=== PATIENT | male | born 1965 | race Caucasian/White ===

== ENCOUNTER 2023-07-28 06:33 | Outpatient (OUT) | payer BC, SELFPAY ==
[2023-07-28 06:41] LABS: Basophils Absolute Auto 0.1 10^3/uL (0.0-0.1); Basophils Percent Auto 1.1 % (0.2-2.0); Eosinophils Absolute Auto 0.3 10^3/uL (0.0-0.7); Eosinophils Percent Auto 5.2 % (0.9-7.0); Hematocrit 43.1 % (42.0-54.0); Hemoglobin 14.3 g/dL (14.0-18.0); Immature Granulocytes Abs Auto 0.01 10^3/uL (0.00-0.03); Immature Granulocytes Pct Auto 0.2 % (0.0-0.5); Lymphocytes Absolute Auto 1.9 10^3/uL (1.2-3.8); Lymphocytes Percent Auto 34.4 % (20.5-60.0); Mean Corpuscular HGB Conc 33.2 g/dL (29.9-35.2); Mean Corpuscular Hemoglobin 27.7 pg (25.9-34.0); Mean Corpuscular Volume 83.5 fL (80.0-94.0); Mean Platelet Volume 8.8 fL (9.5-13.5); Monocytes Absolute Auto 0.7 10^3/uL (0.3-0.8); Monocytes Percent Auto 12.8 % (1.7-12.0); Neutrophils Absolute Auto 2.6 10^3/uL (1.4-6.5); Neutrophils Percent Auto 46.3 % (43.0-75.0); Platelet Count 274 10^3/uL (150-450); Red Blood Count 5.16 10^6/uL (4.70-6.10); Red Cell Distribution Width 14.5 % (11.0-15.0); White Blood Count 5.6 10^3/uL (4.0-11.0)
[2023-07-28 07:30] LABS: Alanine Aminotransferase 42 U/L (16-63); Albumin Level 3.5 g/dL (3.4-5.0); Alkaline Phosphatase 91 U/L (46-116); Anion Gap 8.4; Aspartate Amino Transferase 22 U/L (15-37); BUN Creatinine Ratio 14.8; Bilirubin Total 0.5 mg/dL (0.2-1.0); Calcium 8.3 mg/dL (8.5-10.1); Carbon Dioxide 28.7 mmol/L (21.0-32.0); Chloride 102 mmol/L (98-107); Chol HDL Ratio 4.6; Cholesterol 187 mg/dL (<=200); Estimated GFR (African America >60 (>=60); Estimated GFR (Non-African Ame >60 (>=60); Globulin 3.4 g/dL; Glucose 95 mg/dL (74-106); HDL Cholesterol 41 mg/dL (40-60); LDL Cholesterol Calculated 121.8 mg/dL; Potassium 4.1 mmol/L (3.5-5.1); Sodium 135 mmol/L (136-145); Total Protein 6.9 g/dL (6.4-8.2); Triglycerides 121 mg/dL (<=150); VLDL CHOLESTEROL 24.2 mg/dL
[2023-07-28 07:45] LABS: Prostate Specific Antigen Scrn 0.18 ng/mL (<=4.00)
== END 2023-07-28 06:34 | disposition home or self-care (01) ==
LOC: LAB 06:33
PROVIDERS: PCP Internal Medicine; Visit Provider Internal Medicine
DX: Z00.00 Encounter for general adult medical examination without abnormal findings (principal)
CPT/HCPCS: 36415; 80053; 80061; 85025; G0103

== ENCOUNTER 2024-07-18 06:29 | Outpatient (OUT) | payer BC, SELFPAY ==
--- OUTSIDE RECORDS SUMMARY | 2024-07-18 06:32 | XMS_ITS | CCD ---
Author Organization [facility] Care Team Providers Care Technical Sales Engineer Name Role Phone RAFAL, DR SANDOVAL Primary Care Unavailable MARKER, DR JOHNSTON Admitting Unavailable MARKER, DR JOHNSTON Attending Unavailable ROJELIO, ELADIO JACKSON Consulting Unavailable MARKER, DR JOHNSTON Consulting Unavailable KENNEDY, WERNER Consulting Unavailable BALL, DR SANDOVAL Admitting Unavailable BALL, DR SANDOVAL Attending Unavailable BALL, DR SANDOVAL Primary Care Unavailable BALL, DR SANDOVAL Consulting Unavailable REQUEST, DR OTTO LISTED Admitting Unavaila ble REQUEST, DR OTTO LISTED Attending Unavaila ble BALL, DR SANDOVAL Primary Care Unavailable REQUEST, DR OTTO LISTED Consulting Unavaila ble REQUEST, DR OTTO LISTED Admitting Unavaila ble REQUEST, DR OTTO LISTED Attending Unavaila ble BALL, DR SANDOVAL Primary Care Unavailable REQUEST, DR OTTO LISTED Consulting Unavaila ble SANDY OLIVER Admitting Unavailable BENITO, SANDY Attending Unavailable BALL, DR SANDOVAL Primary Care Unavailable SANDY OLIVER Consulting Unavailable Rafal, Aman Unavailable Allergies Allergy Classification Reported Allergen(s) Allergy Type Date of Onset Reaction(s) Facility (1 source) Penicillins Drug allergy (disorder) 5 [facility] (1 source) predniSONE Drug Allergy 7 [facility] (3 sources) penicillAMINE Drug Allergy Unknown [facility] Other Medications Current Medications Medication Drug Class(es) Dates Sig (Normalized) Sig (Original) amLODIPine 5 mg / benazepril hydrochloride 10 mg oral capsule (3 sources) Dihydropyridine Calcium Channel Tino, Angiotensin Converting Enzyme Inhibitor Start: 07-31-2023 amLODIPine Besy-Benazepril HCl 5-10 MG as directed Orally daily for 30 days Jul, Active Start: 07-19-2023 Lotrel 5-10 MG as directed Orally daily for 30 days Jul, Active benazepril hydrochloride 10 mg oral tablet (3 sources) Angiotensin Converting Enzyme Inhibitor take 1 tablet by mouth once daily Benazepril HCl 10 MG TAKE 1 TABLET BY MOUTH EVERY DAY for 90 Active Completed/Discontinued Medications Medication Drug Class(es) Dates Sig (Normalized) Sig (Original) clarithromycin 250 mg oral tablet (3 sources) Macrolide Antimicrobial Start: 09-15-2016 take 1 tablet by mouth every twelve hours Biaxin 250 MG 1 tablet Orally every 12 hrs for 10 day(s) Sep, Not-Taking Problems Problem Classification Problem Date Documented Da te Episodic/Chronic Conditions associated with dizziness or vertigo (1 source) Dizziness and giddiness; Translations: [DIZZINESS AND GIDDINESS] Onset: 10-12-2021 Episodic Essential hypertension (5 sources) Essential hypertension; Translations: [Essential (primary) hypertension] Chronic Immunizations and screening for infectious disease (4 sources) Encounter for immunization; Translations: [ENCOUNTER FOR IMMUNIZATION] Onset: 10-26-2021 Episodic Nausea and vomiting (1 source) Nausea with vomiting, unspecified; Translations: [NAUSEA WITH VOMITING UNSPECIFIED] Onset: 10-12-2021 Episodic Nonspecific chest pain (4 sources) Chest pain, unspecified; Translations: [CHEST PAIN UNSPECIFIED] Onset: 10-07-2021 Episodic Other nutritional; endocrine; and metabolic disorders (3 sources) Severe obesity; Translations: [Morbid (severe) obesity due to excess calories] Chronic Other nutritional; endocrine; and metabolic disorders (3 sources) Body mass index 30+ - obesity; Translations: [Body mass index (BMI) 36.0-36.9, adult] Chronic Other nutritional; endocrine; and metabolic disorders (1 source) Morbid (severe) obesity due to excess calories Chronic Other nutritional; endocrine; and metabolic disorders (1 source) Body mass index (BMI) 36.0-36.9, adult Chronic Other screening for suspected conditions (not mental disorders or infectious disease) (2 sources) Encounter for screening for malignant neoplasm of prostate; Translations: [ENC SCREEN MALIG NEOPLASM PROSTATE] Onset: 11-26-2021 Episodic Results Test Name Value Interpretation Reference Range Facil ity GLUCOSE BLOODon 11-25-2021 Glucose [Mass/Vol] 95 mg/dL Normal 74-106 [facility] Comment on above: Performed By: #### G JADEN, LIPID #### [facility] [address] [place] [address] Dr. Percy Hayes LIPID PROFILEon 11-25-2021 CHOL-HDL RATIO NORM SEE BELOW Normal [facility] Comment on above: Result Comment: 3.3 - 4.4 LOW RISK 4.4 - 7.1 AVERAGE RISK 7.1 - 11.0 MODERATE RISK >11.0 HIGH RISK Performed By: #### G JADEN, LIPID #### [facility] [address] [address] [address] Percy Hayes Cholesterol [Mass/Vol] 213 mg/dL Critically high <=[address] [facility] Comment on above: Performed By: #### G JADEN, LIPID #### [facility] [address] [address] [address] Percy Hayes Cholesterol in HDL [Mass/Vol] 40 mg/dL Normal [facility] Comment on above: Performed By: #### G JADEN, LIPID #### [facility] [address] [address] [address] Percy Hayes Cholesterol in LDL [Mass/Vol] 136.0 mg/dL Normal [facility] Comment on above: Performed By: #### G JADEN, LIPID #### [facility] [address] [address] [address] Percy Hayes Cholesterol.total/Ch olesterol in HDL [Mass ratio] 5.3 {ratio} Normal [facility] Comment on above: Performed By: #### G JADEN, LIPID #### [facility] [address] [address] [address] Percy Hayes HDL NORMAL > or = 60 mg/dl - LOW CARDIOVASCULAR RISK <40 mg/dl - HIGH CARDIOVASCULAR RISK Normal [facility] Comment on above: Performed By: #### G JADEN, LIPID #### [facility] [address] [address] [address] Percy Hayes LDL CALC NORMAL SEE BELOW Normal [facility] Comment on above: Result Comment: <100 mg/dl OPTIMAL 100 - 129 mg/dl NEAR OR ABOVE OPTIMAL 130 - 159 mg/dl BORDERLINE HIGH 160 - 189 mg/dl HIGH >190 mg/dl VERY HIGH Performed By: #### G JADEN, LIPID #### [facility] [address] [address] [address] Percy Hayes Triglyceride [Mass/Vol] 185 mg/dL Critically high <=[address] [facility] Comment on above: Performed By: #### G JADEN, LIPID #### [facility] [address] [address] [address] Percy Hayes VLDL CALC 37.0 mg/dL Normal [facility] Comment on above: Performed By: #### G JADEN, LIPID #### [facility] [address] [address] [address] Percy Hayes [facility] [facility] October 15, 2021 AMAN SWARTZ, [address] [facility], [place] [address] Re: WILLIAMS LYON Date of : 1965 Thank you for your referral of Williams Lyon who was seen on consultation on 10/12/2021, for lipoma right scapula. I have enclosed my consultation note for your review. I will be happy to follow Williams. Sincerely, Umesh Heller MD General Surgery Normal [facility] TROPONIN, HIGH SENSITIVITYon 10-08-2021 HSTROP 6.5 pg/mL Normal 4.0-42.[address] [facility] Comment on above: Result Comment: CUT- OFF POINTS HAVE BEEN ESTABLISHED BASED ON THE FOURTH UNIVERSAL DEFINITIONS OF MYOCARDIAL INFARCTION. THE UPPER REFERENCE LIMIT (URL) OF TROPONIN, DEFINED THE 99TH PERCENTILE OF cTnI DISTRIBUTION IN A REFERENCE POPULATION, HAS BEEN CONFIRMED THE DECISION THRESHOLD FOR CO DIAGNOSIS. Performed By: #### H STROPN ####[facility] [id number] [address]Dr. Percy Hayes CBC AUTO DIFFon 10-07-2021 BASO # 0.1 103/ul Normal 0.0-0.[address] [facility] Comment on above: Performed By: #### C BC #### [facility] [address] [address] [address] Percy Hayes Basophils/100 WBC (Bld) 0.8 % Normal 0.2-2.[address] [facility] Comment on above: Performed By: #### C BC #### [facility] [address] [address] [address] Percy Hayes EO # 0.3 103/ul Normal 0.0-0.7 [facility] Comment on above: Performed By: #### C BC #### [facility] [address] [place] [address] Dr. Percy Hayes Eosinophils/100 WBC (Bld) 3.8 % Normal 0.9-7.[address] [facility] Comment on above: Performed By: #### C BC #### [facility] [address] [place] [address] Dr. Percy Hayes Erythrocyte distribution width (RBC) [Ratio] 15.2 % Critically high 11.0-15.[address] [facility] Comment on above: Performed By: #### C BC #### [facility] [address] [place] [address] Dr. Percy Hayes Hematocrit (Bld) [Volume fraction] 43.8 % Normal 42.0-54.[address] [facility] Comment on above: Performed By: #### C BC #### [facility] [address] [place] [address] Dr. Percy Hayes Hemoglobin (Bld) [Mass/Vol] 14.0 g/dL Normal 14.0-18.0 [facility] Comment on above: Performed By: #### C BC #### [facility] [address] [place] [address] Dr. Percy Hayes IG # 0.02 10e3/ul Normal 0.00-0.03 [facility] Comment on above: Performed By: #### C BC #### [facility] [address] [place] [address] Dr. Percy Hayes IG % 0.2 % Normal 0.0-0.5 [facility] Comment on above: Performed By: #### C BC #### [facility] [address] [place] [address] Dr. Percy Hayes LYMPH # 2.9 103/ul Normal 1.2-3.8 [facility] Comment on above: Performed By: #### C BC #### [facility] [address] [place] [address] Dr. Percy Hayes Lymphocytes/100 WBC (Bld) 34.3 % Normal 20.5-60.[address] [facility] Comment on above: Performed By: #### C BC #### [facility] [address] [place] [address] Dr. Percy Hayes MANUAL DIFF REQ NO Normal [facility] Comment on above: Performed By: #### C BC #### [facility] [address] [place] [address] Dr. Percy Hayes MCH (RBC) [Entitic mass] 25.6 pg Critically low 25.9-34.[address] [facility] Comment on above: Performed By: #### C BC #### [facility] [address] [place] [address] Dr. Percy Hayes MCHC (RBC) [Mass/Vol] 32.0 g/dL Normal 29.9-35.[address] [facility] Comment on above: Performed By: #### C BC #### [facility] [address] [place] [address] Dr. Percy Hayes MCV (RBC) [Entitic vol] 80.1 fL Normal 80.0-94.[address] [facility] Comment on above: Performed By: #### C BC #### [facility] [address] [place] [address] Dr. Percy Hayes MONO # 1.2 103/ul Critically high 0.3-0.8 [facility] Comment on above: Performed By: #### C BC #### [facility] [address] [place] [address] Dr. Percy Hayes Monocytes/100 WBC (Bld) 14.6 % Critically high 1.7-12.[address] [facility] Comment on above: Performed By: #### C BC #### [facility] [address] [place] [address] Dr. Percy Hayes NEUT # 3.9 103/ul Normal 1.4-6.5 [facility] Comment on above: Performed By: #### C BC #### [facility] [address] [place] [address] Dr. Percy Hayes Neutrophils/100 WBC (Bld) 46.3 % Normal 43.0-75.[address] [facility] Comment on above: Performed By: #### C BC #### [facility] [address] [place] [address] Dr. Percy Hayes Platelet mean volume (Bld) [Entitic vol] 8.7 fL Critically low 9.5-13.[address] [facility] Comment on above: Performed By: #### C BC #### [facility] [address] [place] [address] Dr. Percy Hayes PLT 357 103/ul Normal 150-[address] [facility] Comment on above: Performed By: #### C BC #### [facility] [address] [place] [address] Dr. Percy Hayes RBC 5.47 106/ul Normal 4.70-6.[address] [facility] Comment on above: Performed By: #### C BC #### [facility] [address] [place] [address] Dr. Percy Hayes WBC 8.4 103/ul Normal 4.0-11.[address] [facility] Comment on above: Performed By: #### C BC #### [facility] [address] [place] [address] Dr. Percy Hayes D-DIMERon 10-07-2021 D-DIMER 0.20 mg/L FEU Normal 0.19-0.50 [facility] Comment on above: Performed By: #### D DIM #### [facility] [address] [place] [address] Dr. Percy Hayes D-DIMER COMMENTS SEE BELOW Normal [facility] Comment on above: Result Comment: Incr eases in D-Dimer concentration observed with thromboembolic events can be variable due to localization, size, and age of the thrombus. Therefore, a thromboembolic event cannot be diagnosed with certainty on the basis of the reference range. D-Dimers may also be elevated for a variety of disorders including: advanced age, , coronary disease, cancer, liver disease, infection, inflammation, hematoma, DIC, trauma, post-surgery, diabetes, thrombolytic or anticoagulant therapy, stress, and generalized hospitalization. Performed By: #### D DIM #### [facility] [address] [address] [address] Percy Hayes PROF 14(COMP METB)on 021 Albumin [Mass/Vol] 3.6 g/dL Normal 3.5-5.0 [facility] Comment on above: Performed By: #### H HEENA, CMP #### [facility] [address] [address] [address] Percy Hayes Albumin/Globulin [Mass ratio] 1.0 {ratio} Normal [facility] Comment on above: Performed By: #### H HEENA, CMP #### [facility] [address] [address] [address] Percy Hayes ALP [Catalytic activity/Vol] 86 U/L Normal 38-[address] [facility] Comment on above: Performed By: #### H HEENA, CMP #### [facility] [address] [place] [address] Dr. Percy Hayes ALT [Catalytic activity/Vol] 56 U/L Normal 21-[address] [facility] Comment on above: Performed By: #### H HEENA, CMP #### [facility] [address] [place] [address] Dr. Percy Hayes Anion gap [Moles/Vol] 12.0 mmol/L Normal [facility] Comment on above: Performed By: #### H HEENA, CMP #### [facility] [address] [place] [address] Dr. Percy Hayes AST [Catalytic activity/Vol] 22 U/L Normal 17-[address] [facility] Comment on above: Performed By: #### H CHRISTOPHERPN, CMP #### [facility] [address] [address] [address] Percy Hayes Bilirubin [Mass/Vol] 0.4 mg/dL Normal 0.2-1.3 [facility] Comment on above: Performed By: #### H CHRISTOPHERPN, CMP #### [facility] [address] [address] [address] Percy Hayes Calcium [Mass/Vol] 8.4 mg/dL Normal 8.4-10.2 [facility] Comment on above: Performed By: #### H STROPN, CMP #### [facility] [address] [address] [address] Percy Hayes Chloride [Moles/Vol] 102 mmol/L Normal 98-[address] [facility] Comment on above: Performed By: #### H STROPN, CMP #### [facility] [address] [address] [address] Percy Hayes CO2 [Moles/Vol] 25.5 mmol/L Normal 22.0-30.0 [facility] Comment on above: Performed By: #### H STROPN, CMP #### [facility] [address] [address] [address] Percy Hayes Creatinine [Mass/Vol] 0.92 mg/dL Normal 0.66-1.[address] [facility] Comment on above: Performed By: #### H STROPN, CMP #### [facility] [address] [address] [address] Percy Hayes EGFR-AF NIGERIEN >60 Normal >=60 [facility] Comment on above: Performed By: #### H STROPN, CMP #### [facility] [address] [address] [address] Percy Hayes EGFR-NON AF NIGERIEN >60 Normal >=[address] [facility] Comment on above: Performed By: #### H STROPN, CMP #### [facility] [address] [address] [address] Percy Hayes Globulin (S) [Mass/Vol] 3.7 g/dL Normal [facility] Comment on above: Performed By: #### H STROPN, CMP #### [facility] [address] [address] [address] Percy Hayes Glucose [Mass/Vol] 146 mg/dL Critically high 74-106 [facility] Comment on above: Performed By: #### H STROPN, CMP #### [facility] [address] [address] [address] Percy Hayes Potassium [Moles/Vol] 3.5 mmol/L Normal 3.4-5.[address] [facility] Comment on above: Performed By: #### H STROPN, CMP #### [facility] [address] [place] [address] Dr. Percy Hayes Protein [Mass/Vol] 7.3 g/dL Normal 6.1-8.2 [facility] Comment on above: Performed By: #### H STROPN, CMP #### [facility] [address] [place] [address] Dr. Percy Hayes Sodium [Moles/Vol] 136 mmol/L Critically low 137-[address] [facility] Comment on above: Performed By: #### H STROPN, CMP #### [facility] [address] [place] [address] Dr. Percy Hayes Urea nitrogen [Mass/Vol] 15.0 mg/dL Normal 9.0-20.[address] [facility] Comment on above: Performed By: #### H HEENA, CMP #### [facility] [address] [place] [address] Dr. Percy Hayes Urea nitrogen/Creatinine [Mass ratio] 16.3 mg/mg Normal [facility] Comment on above: Performed By: #### H HEENA, CMP #### [facility] [address] [place] [address] Dr. Percy Hayes PROTIMEon 10-07-2021 INR Coag (PPP) [Relative time] 1.00 {INR} Normal [facility] Comment on above: Performed By: #### P TT, PT #### [facility] [address] [place] [address] Dr. Percy Hayes INR GUIDELINES SEE BELOW Normal [facility] Comment on above: Result Comment: JALIL RED INR: 2.0 - 3.0 CONDITIONS NOT LISTED BELOW 2.5 - 3.5 FOR PROSTHETIC HEART VALVE REPLACEMENT 2.5 - 3.5 RECURRENT THROMBOSIS Performed By: #### P TT, PT #### [facility] [address] [place] [address] Dr. Percy Hayes PT Coag (PPP) [Time] 10.8 s Normal 9.0-11.[address] [facility] Comment on above: Performed By: #### P TT, PT #### [facility] [address] [address] [address] Percy Hayes PTTon 10-07-2021 aPTT Coag (Bld) [Time] 23.4 s Normal 22.3-36.[address] [facility] Comment on above: Performed By: #### P TT, PT #### [facility] [address] [address] [address] Percy Hayes TROPONIN, HIGH SENSITIVITYon 10-07-2021 HSTROP 5.3 pg/mL Normal 4.0-42.[address] [facility] Comment on above: Result Comment: CUT- OFF POINTS HAVE BEEN ESTABLISHED BASED ON THE FOURTH UNIVERSAL DEFINITIONS OF MYOCARDIAL INFARCTION. THE UPPER REFERENCE LIMIT (URL) OF TROPONIN, DEFINED THE 99TH PERCENTILE OF cTnI DISTRIBUTION IN A REFERENCE POPULATION, HAS BEEN CONFIRMED THE DECISION THRESHOLD FOR CO DIAGNOSIS. Performed By: #### H STROPN, CMP #### [facility] [address] [address] [address] Percy Hayes Physician Referralon 021 Physician Referral [id number] #[id number] Normal [facility] Vital Signs Date Time Vital Sign Value Performing Clinician Facility 07-19-2023 10:00-0400 Body height 182.88 cm [facility] [employer] Other [facility] Other 07-19-2023 10:00-0400 Body mass index (BMI) [Ratio] 36.89 kg/m2 [employer] Other [facility] Other 07-19-2023 10:00-0400 Body weight 123.38 kg [employer] Other [facility] Other 07-19-2023 10:00-0400 Diastolic blood pressure 108 mm[Hg] [employer] Other [facility] Other 07-19-2023 10:00-0400 Respiratory rate 12 /min [facility]man [employer] Other [facility] Other 07-19-2023 10:00-0400 Systolic blood pressure 155 mm[Hg] Aman Swartz Other [facility] Other Encounters Encounter Date Encounter Type Care Provider Facility Start: 07-31-2023 End: 07-31-2023 ambulatory Aman Swartz Other [facility] Other Start: 07-31-2023 Telephone encounter Aman Swartz [facility] Start: 07-19-2023 End: 07-19-2023 ambulatory Aman Swartz Other [facility] Other Start: 07-19-2023 Encounter for genera l adult medical examination without abnormal findings Aman Swartz [facility] Start: 07-19-2023 Periodic preventive med est patient 40-64yrs Aman Swartz [facility] Start: 11-26-2021 Encounter for genera l adult medical examination without abnormal findings DR AMAN SWARTZ [facility] Start: 11-25-2021 End: 11-26-[address] AMAN SWARTZ Facility:[facility] Start: 11-25-2021 End: 11-26-2021 Encounter for general adult medical examination without abnormal findings DR AMAN SWARTZ Facility:[facility] Start: 10-26-2021 End: 10-27-2021 ambulatory SANDY OLIVER Facility:[facility] Start: 10-07-2021 End: 10-08-[address] AMAN SWARTZ Facility:[facility] Start: 01-12-2021 End: 01-13-2021 ambulatory NONE LISTED REQUEST Facility:[facility] Start: 12-21-2020 End: 12-22-2020 ambulatory NONE LISTED REQUEST Facility:[facility] Procedures Date Procedure Procedure Detail Performing Clinician Start: 11-25-[address] RUBNI IN [facility] Comment on above: Performed By: #### P [facility] #### [facility] [address] [place] [address] Dr. Percy Hayes Immunizations Immunization Date Immunization Notes Care Provider Fa cili 07-19-2023 influenza, injectabl e, quadrivalent, preservative free Aman Swartz Other [facility] Other 08-26-2022 influenza virus vaccine, split virus (incl. purified surface antigen) Aman Rafal Other [facility] Other Payers Date Payer Category Payer Unknown [id number] 2.16.84 [id number] 1965 Unknown [id number] 2.16.84 [id number] 1958 Self-pay 1958 Unknown [id number] [facility] [id number] Unknown [id number] 2.16.84 [id number] Unknown [id number] 2.16.84 [id number] Unknown [id number] 2.16.84 [id number] Social History Date Type Detail Facility Sex Assigned At [facility] Other Evaluation note 07-31-2023 Note Date & Type Note Facility 07-31-2023 Evaluation note Encounter Date Diagnosis Assessment Notes Jul, Primary hypertension (ICD-10 - I10) [place] [facility] Other Evaluation note 07-19-2023 Note Date & Type Note Facility 07-19-2023 Evaluation note Encounter Date Diagnosis Assessment Notes Jul, Wellness examination (ICD-10 - Z00.00) Healthy diet and exercise. Reviewed age-appropriat e preventive testing recommended. Jul, Primary hypertension (ICD-10 - I10) This patient is instructed to consume a healthy, low-fat, low-salt diet. They are also encouraged to continue exercise to achieve/mainta in a normal BMI. Double his Benazepril until used up supply. Start Lotrel 5/10mg qd Jul, Morbid (severe) obesity due to excess calories (ICD-10 - E66.01) This patient has been instructed on a low-fat, high-fiber diet. They are instructed to reduce calories, portion sizes and snacks. It is recommended that they exercise for 30 minutes, 3-5 times weekly. Jul, Body mass index [BMI] 36.0-36.9, adult (ICD-10 - Z68.36) Jul, Screening PSA (prostate specific antigen) (ICD-10 - Z12.5) Yearly PSA and [facility] Other Clinical Note 10-12-2021 Note Date & Type Note Facility 10-12-2021 Note Chief Complaint consultation for lipoma HPI Staff 55 year old male presents on consultation from Dr. Swartz for lipoma right scapula. Noted several months ago after injury post fall. No increase in size since first noted. Denies this being painful. History of Present Illness 55 yo male presents for evaluation of mass mid back; noticed it several months ago when he was checking his back after a fall; no pain, no skin changes; has not changed in size since he first noticed it; no h/o other similar masses; also small cyst adjacent to area that was inflamed, now improved; no asa or NSAID use. Review of Systems PHQ Score Initial Depression Screen Score: 0 ROS - Provider Constitutional: no fever, no sweats, no weight loss. Eyes: no glasses, no blurred vision, no visual loss. ENMT: no dentures, no hoarseness, no swallowing difficulties, no hearing loss, no ear infection(s), no nose bleeds. Cardiovascular: high blood pressure, no chest pain, regular heartbeat, no heart murmur. Respiratory: no shortness of breath, no cough, no asthma, no wheezing. Gastrointestinal: no nausea, no vomiting, no diarrhea, no constipation, no blood in stool, no change in bowel habits, no abdominal pain, no hepatitis. Genitourinary: no kidney stones, no urine infection, no dysuria. Musculoskeletal: no pain, no weakness. Skin: no changing moles, no rash, yes skin lumps. Neurologic: no seizures, no epilepsy, no headache. Psychiatric: no emotional or psychiatric problem. Heme/Lymph: no bleeding problems, no anemia, no blood clots, no transfusions. Allergy/Immunologic: no swollen lymph nodes/glands, no IV drug abuse. Other: Additional ROS info: Except as noted in the above Review of Systems and in the History of Present Illness, all other systems have been reviewed and are negative or noncontributory. Physical Exam Vitals & Measurements T: 36.7 ?C(Temporal Artery) HR: 80(Peripheral) RR: 16 BP: 128/80 HT: 182.9 cm HT: 182.88 cm WT: 119.0 kg WT: 119 kg BMI: 35.58 HEENT: normal conjunctiva, sclera clear, no scleral icterus, EOM intact, PERRLA, oral mucosa moist without lesions. Neck: trachea midline, no mass, symmetric, no thyromegaly or nodules, no adenopathy Lymphatic: no cervical adenopathy, Musculoskeletal: normal gait, digits and nails without infection, nodes, cyanosis, clubbing. Skin: no rashes, no lesions, no ulcers, mid back with 10 cm subcutaneous mass, soft, nontender, no overlying skin changes; just to left of mass, 1 cm sebaceous cyst, nontender, nondrainage. Psychiatric/Neuro: oriented to time, place, person, judgement normal, affect appropriate for age, insight intact, no focal deficits. Tests: review of old records completed, Discussed surgical options, risks, and possible complications with patient. Assessment/Plan 1. Lipoma of back (D17.1: Benign lipomatous neoplasm of skin and subcutaneous tissue of trunk) asymptomatic, patient wishes to observe for now, call if increasing in size, or causes discomfort. 2. Epidermal cyst (L72.0: Epidermal cyst) asymptomatic now, call with problems/questions. Follow-up No qualifying data available Patient Education Lipoma Removal Problem List/Past Medical History Ongoing BMI 35.0-35.9,adult BPH associated with nocturia Epidermal cyst HTN (hypertension) Lipoma of back Historical Sebaceous cyst of axilla Procedure/Surgical History Colonoscopy (07/09/2015), EGD - Esophagogastroduodenoscopy (07/09/2015), Excision of ganglion cyst. Medications benazepril 10 mg Tab, 10 mg= 1 tab(s), Oral, Daily Allergies penicillin (Unknown) Social History Alcohol - Denies Alcohol Use, 10/12/2021 Substance Abuse - Denies Substance Abuse, 10/12/2021 Tobacco Never (less than 100 in lifetime) Tobacco Use:. Never Smokeless Tobacco Use:., 10/12/2021 Family History Hypertension: Mother. Leukemia: Father. [facility] Comment on above: Result Comment: Elec rogelioally Signed By: EVELYN QUINONES, Umesh Parks\Date and Time Signed: 10/12/21 16:04 EST Clinical Note 10-12-2021 Note Date & Type Note Facility 10-12-2021 Note Dermatology Lipoma Removal Lipoma removal is a surgical procedure to remove a noncancerous (benign) tumor that is made up of fat cells (lipoma). Most lipomas are small and painless and do not require treatment. They can form in many areas of the body but are most common under the skin of the back, shoulders, arms, and thighs. You may need lipoma removal if you have a lipoma that is large, growing, or causing discomfort. Lipoma removal may also be done for cosmetic reasons. Tell a health care provider about: ? Any allergies you have. ? All medicines you are taking, including vitamins, herbs, eye drops, creams, and vqbn-[id number]-gqrvtxc medicines. ? Any problems you or family members have had with anesthetic medicines. ? Any blood disorders you have. ? Any surgeries you have had. ? Any medical conditions you have. ? Whether you are or may be . What are the risks? Generally, this is a safe procedure. However, problems may occur, including: ? Infection. ? Bleeding. ? Allergic reactions to medicines. ? Damage to nerves or blood vessels near the lipoma. ? Scarring. What happens before the procedure? Staying hydrated Follow instructions from your health care provider about hydration, which may include: ? Up to 2 hours before the procedure ? you may continue to drink clear liquids, such as water, clear fruit juice, black coffee, and plain tea. Eating and drinking restrictions Follow instructions from your health care provider about eating and drinking, which may include: ? 8 hours before the procedure ? stop eating heavy meals or foods such as meat, fried foods, or fatty foods. ? 6 hours before the procedure ? stop eating light meals or foods, such as toast or cereal. ? 6 hours before the procedure ? stop drinking milk or drinks that contain milk. ? 2 hours before the procedure ? stop drinking clear liquids. Medicines ? Ask your health care provider about: ? Changing or stopping your regular medicines. This is especially important if you are taking diabetes medicines or blood thinners. ? Taking medicines such as aspirin and ibuprofen. These medicines can thin your blood. Do not take these medicines before your procedure if your health care provider instructs you not to. ? You may be given antibiotic medicine to help prevent infection. General instructions ? Ask your health care provider how your surgical site will be marked or identified. ? You will have a physical exam. Your health care provider will check the size of the lipoma and whether it can be moved easily. ? You may have imaging tests, such as: ? X-rays. ? CT scan. ? MRI. ? Plan to have someone take you home from the hospital or clinic. What happens during the procedure? ? To reduce your risk of infection: ? Your health care team will wash or sanitize their hands. ? Your skin will be washed with soap. ? You will be given one or more of the following: ? A medicine to help you relax (sedative). ? A medicine to numb the area (local anesthetic). ? A medicine to make you fall asleep (general anesthetic). ? A medicine that is injected into an area of your body to numb everything below the injection site (regional anesthetic). ? An incision will be made over the lipoma or very near the lipoma. The incision may be made in a natural skin line or crease. ? Tissues, nerves, and blood vessels near the lipoma will be moved out of the way. ? The lipoma and the capsule that surrounds it will be from the surrounding tissues. ? The lipoma will be removed. ? The incision may be closed with stitches (sutures). ? A bandage (dressing) will be placed over the incision. What happens after the procedure? ? Do not drive for 24 hours if you received a sedative. ? Your blood pressure, heart rate, breathing rate, and blood oxygen level will be monitored until the medicines you were given have worn off. This information is not intended to replace advice given to you by your health care provider. Make sure you discuss any questions you have with your health care provider. Document Released: 12/08/2016 Document Revised: 05/18/2017 Document Reviewed: 12/08/2016 Elsevier Patient Education ? 2020 [employer]. [facility] Clinical Note 10-08-2021 Note Date & Type Note Facility 10-08-2021 Note PROCEDURE: XR CHEST 1 V REASON FOR STUDY/CLINICAL HISTORY: CHEST PAIN, UNSPECIFIED. COMPARISON STUDY: None available at time of dictation. TECHNIQUE: Single view(s) of the chest presented for interpretation. FINDINGS: There is slight bronchial thickening in the right greater than left perihilar region. Very minimal linear atelectasis at the left lung base. Normal cardiomediastinal silhouette for this projection and level of inspiration. No focal consolidation, edema, or large effusion. Very trace dependent left effusion is not entirely excluded as body habitus obscures evaluation however this likely represents soft tissue overlap. No pneumothorax. No acute appearing focal significant bony abnormality. IMPRESSION: Very slight bronchial thickening centrally and atelectasis at the left lung base. No large effusion, dense consolidation, or pneumothorax. Electronically authenticated by: WERNER KENNEDY Date: 2021-10-07 22:47 [facility] Evaluation note Note Date & Type Note Facility Evaluation note No Information [facility] [employer] Other History general Narrative - Reported Note Date & Type Note Facility History general Narrative - Reported Type Medical History Primary hypertension Surgical History COLONOSCOPY 2014 Surgical History EGD 2014 Hospitalization History see surgical hx [facility] [employer] Other Summary Purpose Family History No Family History Records FoundNo Family History Records Found Advance Directives No Advanced Directives Records FoundNo Advanced Directives Records Found Additional Source Comments (unrecognized sect ion and content) No Status Records FoundNo Status Records Found INFORMATION SOURCE (unrecogn ized section and content) DATE CREATED AUTHOR [facility]2021 [facility] DATE CREATED AUTHOR AUTHOR'S ORGANIZ ATION 11/26/2021 [facility] REASON FOR VISIT (unrecogniz ed section and content) [facility] resultsRefill FOR RECORDS PERTAINING TO PATIENTS WHO ARE OR HAVE BEEN ENROLLED IN A CHEMICAL DEPENDENCY/SUBSTANCEABUSE PROGRAM, SOME INFORMATION MAY BE OMITTED. This clinical summary was aggregated from multiple sources. Caution should be exercised in using it in the provision of clinical care. This summary normalizes information from multiple sources, and as a consequence, information in this document may materially change the coding, format and clinical context of patient data. In addition, data may be omitted in some cases. CLINICAL DECISIONS SHOULD BE BASED ON THE PRIMARY CLINICAL RECORDS. [facility]. provides no warranty or guarantee of the accuracy or completeness of information in this document.
[2024-07-18 07:01] LABS: Basophils Absolute Auto 0.1 10^3/uL (0.0-0.1); Basophils Percent Auto 1.1 % (0.2-2.0); Eosinophils Absolute Auto 0.2 10^3/uL (0.0-0.7); Eosinophils Percent Auto 3.7 % (0.9-7.0); Hematocrit 47.5 % (42.0-54.0); Hemoglobin 15.6 g/dL (14.0-18.0); Lymphocytes Absolute Auto 1.7 10^3/uL (1.2-3.8); Lymphocytes Percent Auto 30.5 % (20.5-60.0); Mean Corpuscular HGB Conc 32.8 g/dL (29.9-35.2); Mean Corpuscular Hemoglobin 27.8 pg (25.9-34.0); Mean Corpuscular Volume 84.5 fL (80.0-94.0); Mean Platelet Volume 8.7 fL (9.5-13.5); Monocytes Absolute Auto 0.6 10^3/uL (0.3-0.8); Monocytes Percent Auto 10.2 % (1.7-12.0); Neutrophils Absolute Auto 3.1 10^3/uL (1.4-6.5); Neutrophils Percent Auto 54.5 % (43.0-75.0); Platelet Count 284 10^3/uL (150-450); Red Blood Count 5.62 10^6/uL (4.70-6.10); White Blood Count 5.7 10^3/uL (4.0-11.0)
[2024-07-18 08:30] LABS: Alanine Aminotransferase 30 U/L (16-63); Albumin Level 3.5 g/dL (3.4-5.0); Alkaline Phosphatase 88 U/L (46-116); Anion Gap 10.6; Aspartate Amino Transferase 19 U/L (15-37); BUN Creatinine Ratio 13.4; Bilirubin Total 0.7 mg/dL (0.2-1.0); Calcium 9.2 mg/dL (8.5-10.1); Carbon Dioxide 26.9 mmol/L (21.0-32.0); Chloride 103 mmol/L (98-107); Chol HDL Ratio 3.9; Cholesterol 194 mg/dL (<=200); Estimated GFR (African America >60 (>=60 mL/min/1.73m^2); Estimated GFR (Non-African Ame >60 (>=60 mL/min/1.73m^2); Globulin 3.4 g/dL; Glucose 102 mg/dL (74-106); HDL Cholesterol 50 mg/dL (40-60); LDL Cholesterol Calculated 128.2 mg/dL; Potassium 4.5 mmol/L (3.5-5.1); Sodium 136 mmol/L (136-145); Total Protein 6.9 g/dL (6.4-8.2); Triglycerides 79 mg/dL (<=150); VLDL CHOLESTEROL 15.8 mg/dL
[2024-07-18 08:40] LABS: Prostate Specific Antigen Scrn 0.17 ng/mL (<=4.00)
== END 2024-07-18 06:30 | disposition home or self-care (01) ==
LOC: LAB 06:30
PROVIDERS: PCP Internal Medicine; Visit Provider Internal Medicine
DX: Z00.00 Encounter for general adult medical examination without abnormal findings (principal)
CPT/HCPCS: 36415; 80053; 80061; 85025; G0103